=== PATIENT | female | born 1930 | race Caucasian/White ===

== ENCOUNTER → 2017-12-21 | Outpatient (CLI) | payer OTHER | LOC: HYPER 06:54 | DX: L89.892 Pressure ulcer of other site, stage 2 (principal); S81.812A Laceration without foreign body, left lower leg, initial encounter; L03.90 Cellulitis, unspecified; I48.91 Unspecified atrial fibrillation; E44.0 Moderate protein-calorie malnutrition; E03.9 Hypothyroidism, unspecified; K21.9 Gastro-esophageal reflux disease without esophagitis; M26.81 Anterior soft tissue impingement; F03.90 Unspecified dementia, unspecified severity, without behavioral disturbance, psychotic disturbance, mood disturbance, and anxiety; X58.XXXA Exposure to other specified factors, initial encounter; Y93.89 Activity, other specified; Y92.89 Other specified places as the place of occurrence of the external cause; Y99.8 Other external cause status ==

== ENCOUNTER → 2017-12-31 | Outpatient (CLI) | payer OTHER | LOC: HYPER 07:06 | DX: L89.892 Pressure ulcer of other site, stage 2 (principal); S81.812D Laceration without foreign body, left lower leg, subsequent encounter; I48.91 Unspecified atrial fibrillation; E03.9 Hypothyroidism, unspecified; E44.0 Moderate protein-calorie malnutrition; K21.9 Gastro-esophageal reflux disease without esophagitis; F03.90 Unspecified dementia, unspecified severity, without behavioral disturbance, psychotic disturbance, mood disturbance, and anxiety; X58.XXXD Exposure to other specified factors, subsequent encounter ==